=== PATIENT | female | born 1960 | race Caucasian/White ===

== ENCOUNTER 2019-07-16 07:55 | Inpatient (IN) | payer OTHER ==
[~2019-07-16] VITALS: Ht 177.8 cm; Wt 93.4 kg
--- NOTE | 2019-07-16 08:01 | NUR ---
BIB FOR R ANKLE PAIN S/P TRIPPED AND FELL DOWN 3 STEPS OF LADDER "I TWISTED MY ANKLE ANDHEARD A CRACK'. TO ER BED 1, HOOKED TO MONITOR, DR BENITEZ AT BEDSIDE
[2019-07-16 09:22] LABS: BASOPHILS # (AUTO) 0.1 /CMM (0.0-0.2); BASOPHILS % (AUTO) 0.6 % (0.0-2.0); EOSINOPHILS % (AUTO) 0.9 % (0.0-6.0); HEMATOCRIT 45 % (33-45); HEMOGLOBIN 14.6 g/dL (11.5-14.8); LYMPHOCYTES % (AUTO) 18.1 % (20.0-44.0); MEAN CORPUSCULAR HGB CONC 33 g/dl (31.0-36.0); MEAN CORPUSCULAR VOLUME 84 fL (82-100); MONOCYTES # (AUTO) 0.7 /CMM (0.1-1.30); MONOCYTES % (AUTO) 6.4 % (2.0-12.0); NEUTROPHILS # (AUTO) 8.2 /CMM (1.8-8.9); PLATELET COUNT (AUTO) 399 /CMM (150-450); RED BLOOD CELL COUNT(AUTO) 5.32 MIL/uL (4.0-5.2); WHITE BLOOD COUNT (AUTO) 11.1 K/uL (4.3-11.0)
[2019-07-16 09:29] LABS: CALCIUM, SERUM 9.1 mg/dL (8.5-10.1); CREATININE 0.7 mg/dL (0.6-1.3); POTASSIUM 4.7 mmol/L (3.5-5.1)
[2019-07-16] MEDS ORDERED: PROGESTERONE (09:49)
[2019-07-16] MEDS ORDERED: HYDROMORPHONE INJ 2 MG/ML DISP.SYRIN ONE (10:05)
[2019-07-16] MEDS ORDERED: ANESTHESIA TRAY IN PYXIS 1 EA TRAY MC ONE (10:05)
--- NOTE | 2019-07-16 10:06 | NUR ---
patient signed consent for blood, anesthesia, and procedure (orif of the right ankle). at bedside.
[2019-07-16] MEDS ORDERED: BUPIVACAINE 0.5 % PF 150 MG/30 ML VIAL ONE (10:20)
[2019-07-16] MEDS ORDERED: BACITRACIN 50000 UNITS/VIAL ONE (10:21)
--- NOTE | 2019-07-16 10:24 | NUR ---
anesthesiologist at bedside.
[2019-07-16] MEDS ORDERED: PROPOFOL 100 ML ONE ×2 (10:41)
[2019-07-16] MEDS ORDERED: MIDAZOLAM HCL 2 MG/2ML VIAL ONE (10:42)
[2019-07-16 10:45] VITALS: BP 128/71
--- NOTE | 2019-07-16 10:48 | NUR ---
patient picked up by surgery people, via wheelchair, in no distress and patient is going to room 201 after surgery.
[2019-07-16] MEDS ORDERED: HYDROMORPHONE 1 MG/1 ML DISP.SYRIN ONE (12:49)
--- NOTE | 2019-07-16 13:33 | NUR ---
RN NOTE PT BROUGHT FROM SURGERY FOR RIGHT ANKLE ORIF AT THIS TIME, A/O X4 BREATHING EVEN AND UNLABORED WITH NO S/S OF ANY DISTRESS OR PAIN, IV IS PATENT AND INTACT WITH IVF RUNNING, DRESSING TO RIGHT ANKLE IS DRY AND INTACT, NWB TO RLE, AT BEDSIDE, SAFETY PRECAUTIONS IN PLACE, CALL LIGHT IN REACH, WILL MONITOR ACCORDINGLY Addendum: 07/16/19 at 1512 by COLETTE MELTON RN per surgerical pt is to be discharged later today Addendum: 07/16/19 at 1601 by COLETTE MELTON RN per surgical nurse pt is to be discharged later today
[2019-07-16] MEDS ORDERED: HYDROCODONE/APAP 5/325MG 1 EACH TABLET PO PRN (15:00)
[2019-07-16] MEDS ORDERED: IV LR 1000 ML 1,000 ML IV PRN (15:00)
[2019-07-16] MEDS ORDERED: PROG200C15 PO (15:09)
[2019-07-16] MEDS ORDERED: ESTR1TAB28 PO (15:10)
[2019-07-16] MEDS ORDERED: ONDANSETRON HCL/PF 4 MG/2 ML VIAL IV PRN (16:30)
[2019-07-16] MEDS ORDERED: ASPIRIN EC 325 MG TABLET.DR PO SCH (16:30)
--- NOTE | 2019-07-16 17:03 | NUR ---
RN NOTE PT ABLE TO AMBULATE TO THE BATHROOM WITH WALKER AT THIS TIME
--- NOTE | 2019-07-16 18:40 | NUR ---
DISCHARGE NOTE PT WAS DISCHARGED BACK HOME AT THIS TIME, A/O X4 AMBULATORY WITH WALKER. IV AND ID BAND WERE REMOVED. ALL DISCHARGE PAPERWORK, EXITCARE, AND BELONGING LIST WERE SIGNED, DISCUSSED AND HANDED TO THE PATIENT. SKIN WAS NOTED TO BE DRY AND INTACT WITH THE RLE BEING WRAPPED DUE TO RIGHT ANKLE ORIF THAT WAS DONE TODAY. WALKER WAS PROVIDED. ALL NEEDS WERE ATTENDED TO DURING HER STAY. PT LEFT AT THIS TIME IN MEDICALLY STABLE CONDITION BACK HOME WITH IN THEIR PRIVATE CAR.
[2019-07-16] MEDS ORDERED: CEFAZOLIN 2 GM in IV D5W 100 ML IV SCH (19:00)
[2019-07-17] MEDS ORDERED: ASPIRIN EC 325 MG TABLET.DR PO SCH (10:00)
== END 2019-07-16 18:30 | disposition home or self-care (01) | DRG 494 ==
LOC: ER 08:21 → MEDSG2 11:18
PROVIDERS: ADMIT Nurse Practitioner Acute Care; ATTEND Nurse Practitioner Acute Care
PROC: 0QSJ04Z Reposition Right Fibula with Internal Fixation Device, Open Approach (ICD-10-PCS; principal; 2019-07-16)
DX: S82.851A Displaced trimalleolar fracture of right lower leg, initial encounter for closed fracture (principal); W11.XXXA Fall on and from ladder, initial encounter; Y92.89 Other specified places as the place of occurrence of the external cause
CPT/HCPCS: 36415; 71045-TC; 73600-TC; 73610-TC; 80048-TC; 85025-TC; 85730-TC; G0378; J0690; J1170; J1885; J2250; J2405; J2704; J3490; J7030; J7060; J7120